=== PATIENT | female | born 1955 | race Caucasian/White ===

== ENCOUNTER 2024-07-17 21:35 | Inpatient (IN) | payer MEDICARE, MEDICAID, SELFPAY ==
[2024-07-17] VITALS (7 sets, daily range): BP systolic 121; BP diastolic 69; PULSE 104–134; TEMP 38.1; O2SAT 97; BMI 24.9
--- NOTE | 2024-07-17 22:04 | ECG_ITS ---
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 Measurements Intervals [place] Rate: 140 P: 65 KS: 158 QRS: 72 QRSD: 74 T: 40 QT: 282 QTc: 363 Interpretive Statements 1120 Sinus tachycardia 1974 with frequent ectopic premature complexes [address] depression [address] & Twave abnormality 9150 abnormal ECG Compared to ECG 11/13/2018 19:17:25 ST (T wave) deviation now present Sinus rhythm no longer present T-wave abnormality no longer present Electronically Signed On 07-18-2024 19:29:14 EDT by SOHA CALABRESE M.D.
--- NOTE | 2024-07-17 22:22 | ED.URI1 ---
HPI - URI/Sore Throat General Chief Complaint: Upper Respiratory Infection Stated Complaint: Upper Respiratory Infection A FIB Time Seen by Provider: 07/17/24 22:16 Source: patient Limitations: no limitations History of Present Illness HPI Narrative: ill for 5 days with cough, weakness, lightheadedness. Low grade fever. No chest pain or abdominal pain. No nausea. Cough is dry. States she has had A. fib in the past. she is on Eliquis Related Data Home Medications ?Medication ?Instructions ?Recorded ?Confirmed apixaban 5 mg tablet (Eliquis) 5 mg PO BID 07/17/24 07/17/24 aspirin 81 mg tablet,delayed 81 mg PO DAILY 07/17/24 07/17/24 release escitalopram oxalate 10 mg tablet 10 mg PO DAILY 07/17/24 07/17/24 losartan 25 mg tablet 25 mg PO DAILY 07/17/24 07/17/24 rosuvastatin 10 mg tablet (Crestor) 10 mg PO DAILY 07/17/24 07/17/24 Allergies Allergy/AdvReac Type Severity Reaction Status Date / Time No Known Drug Allergies Allergy Verified 07/17/24 21:46 Review of Systems ROS Status of ROS 10 or more systems reviewed and unremarkable except as noted in history and below Exam Constitutional Vital Signs, click to edit/add: Last Vital Signs Temp 100.6 F H 07/17/24 21:46 Pulse 116 H 07/18/24 01:10 Resp 24 H 07/18/24 01:10 BP 126/65 07/18/24 01:00 Pulse Ox 96 07/18/24 01:10 O2 Del Method Room Air 07/17/24 22:42 Common normals: no apparent distress, average body habitus, oriented x3, no limitations, healthy appearing, alert and well nourished [facility] Common normals: normocephalic and head/scalp atraumatic Eye Common normals: EOMs intact bilaterally and conjunctivae normal Respiratory Common normals: normal respiratory effort, no retractions and no use of accessory muscles Other: few rhonchii bilat and end expiratory wheezing Cardio Rate: tachycardic GI Common normals: Normal to inspection, nondistended, normoactive bowel sounds present, soft to palpation and non-tender Extremity Common normals: normal to inspection and full ROM Neuro Common normals: oriented x3, CN's II-XII intact bilaterally, moves all extremities and no focal motor deficits Psych Appearance: grossly normal Course Vital Signs Vital signs: Vital Signs Temperature 100.6 F H 07/17/24 21:46 Pulse Rate 110 H 07/17/24 21:46 Respiratory Rate 20 07/17/24 21:46 Blood Pressure 121/69 07/17/24 21:46 Pulse Oximetry 97 07/17/24 21:46 Oxygen Delivery Method Room Air 07/17/24 21:46 Temperature 100.6 F H 07/17/24 21:46 Pulse Rate 116 H 07/18/24 01:10 Respiratory Rate 24 H 07/18/24 01:10 Blood Pressure 126/65 07/18/24 01:00 Pulse Oximetry 96 07/18/24 01:10 Oxygen Delivery Method Room Air 07/17/24 22:42 MDM - URI/Sore Throat MDM Narrative Medical decision making narrative: patient history of cigarette use disorder. States she has not smoked cigarettes in 2 weeks. Ill for past 4-5 days with cough, weakness and light headiness as well as fever. Frequent dry cough. No chest. Septic workup initiated including IV antibiotics. cxray with infiltrate right chest. labs pending labs return with WBC 30,000. normal troponin. potassium 3.4. cxray per my review with evidence of density right chest. Tachycardia improved with hydration. Discussed with the hospitalist and patient accepted for admission Lab Data Labs: Lab Results 07/17/24 07/17/24 Range/Units 22:19 23:18 WBC 30.7 H* (4.0-11.0) 10^3/uL RBC 4.31 (4.20-5.40) 10^6/uL Hgb 11.4 L (12.0-16.0) g/dL Hct 35.4 L (36.0-48.0) % MCV 82.1 (81.0-99.0) fL MCH 26.5 L (26.7-34.0) pg MCHC 32.2 (29.9-35.2) g/dL RDW 14.5 (11.0-15.0) % Plt Count 284 (150-450) 10^3/uL MPV 11.5 (9.5-13.5) fL Seg Neuts % (Manual) 87.0 H (43.0-75.0) Band Neutrophils % 1.0 (0-5) % Lymphocytes % (Manual) 5.0 L (20.5-60.0) % Atypical Lymphs % (Man) 2.0 % Monocytes % (Manual) 5.0 (1.7-12.0) % Eosinophils % (Manual) 0.0 L (0.9-7.0) % Basophils % (Manual) 0.0 L (0.2-2.0) % Neutrophils # (Manual) 26.70 H (1.4-6.5) 10^3/uL Band Neutrophils # 0.3 (0.0-0.3) 10^3/uL Lymphocytes # (Manual) 1.53 (1.20-3.80) 10^3/uL Abs Atypical Lymphs Man 0.61 Monocytes # (Manual) 1.53 H (0.30-0.80) 10^3/uL Eosinophils # (Manual) 0.00 (0.00-0.70) 10^3/uL Basophils # (Manual) 0.00 (0.00-0.10) 10^3/uL Toxic Granulation 3+ Toxic Vacuolation 1+ Sodium 136 (136-145) mmol/L Potassium 3.4 L (3.5-5.1) mmol/L Chloride 100 (98-107) mmol/L Carbon Dioxide 22.9 (21.0-32.0) mmol/L Anion Gap 16.5 BUN 19.0 H (7.0-18.0) mg/dL Creatinine 1.04 H (0.55-1.02) mg/dL Est GFR ( Amer) >60 (>=60 mL/min/1.73m^2) Est GFR (Non-Af Amer) 53 L (>=60 mL/min/1.73m^2) BUN/Creatinine Ratio 18.3 Glucose 133 H (74-106) mg/dL Lactate 2.0 (0.4-2.0) mmol/L Calcium 9.7 (8.5-10.1) mg/dL Total Bilirubin 1.6 H (0.2-1.0) mg/dL AST 22 (15-37) U/L ALT 26 (14-59) U/L Alkaline Phosphatase 91 (46-116) U/L Troponin I High Sens 10.8 (4.0-51.3) pg/mL Total Protein 6.9 (6.4-8.2) g/dL Albumin 2.8 L (3.4-5.0) g/dL Globulin 4.1 g/dL Albumin/Globulin Ratio 0.7 Influenza Type A Ag Negative Influenza Type B Ag Negative SARS-CoV-2 Ag (CV2AG) Negative (NEGATIVE) Critical Care Time Critical Care Time Total Critical Care Time: 45 Discharge Plan Discharge Chief Complaint: Upper Respiratory Infection Clinical Impression: Pneumonia, Tachycardia Patient Disposition: Admitted As Inpatient
[2024-07-17 22:40] LABS: Influenza Virus A Antigen Negative; Influenza Virus B Antigen Negative; Internal Control Within Normal Limits; SARS-CoV-2 Ag NEGATIVE (NEGATIVE)
[2024-07-18] VITALS (21 sets, daily range): BP systolic 94–126; BP diastolic 52–70; PULSE 78–124; TEMP 36.4–37.1; O2SAT 91–98; BMI 26.7
[2024-07-18 00:15] LABS: Hematocrit 35.4 % (36.0-48.0); Hemoglobin 11.4 g/dL (12.0-16.0); Mean Corpuscular HGB Conc 32.2 g/dL (29.9-35.2); Mean Corpuscular Hemoglobin 26.5 pg (26.7-34.0); Mean Corpuscular Volume 82.1 fL (81.0-99.0); Mean Platelet Volume 11.5 fL (9.5-13.5); Platelet Count 284 10^3/uL (150-450); Red Blood Count 4.31 10^6/uL (4.20-5.40); Red Cell Distribution Width 14.5 % (11.0-15.0)
[2024-07-18 00:27] LABS: Alanine Aminotransferase 26 U/L (14-59); Albumin Globulin Ratio 0.7; Albumin Level 2.8 g/dL (3.4-5.0); Alkaline Phosphatase 91 U/L (46-116); Anion Gap 16.5; Aspartate Amino Transferase 22 U/L (15-37); BUN Creatinine Ratio 18.3; Bilirubin Total 1.6 mg/dL (0.2-1.0); Calcium 9.7 mg/dL (8.5-10.1); Carbon Dioxide 22.9 mmol/L (21.0-32.0); Chloride 100 mmol/L (98-107); Estimated GFR (African America >60 (>=60 mL/min/1.73m^2); Estimated GFR (Non-African Ame 53 (>=60 mL/min/1.73m^2); Globulin 4.1 g/dL; Glucose 133 mg/dL (74-106); Potassium 3.4 mmol/L (3.5-5.1); Sodium 136 mmol/L (136-145); Total Protein 6.9 g/dL (6.4-8.2)
[2024-07-18 00:28] LABS: White Blood Count 30.7 10^3/uL (4.0-11.0)
[2024-07-18 00:29] LABS: Atypical Lymphocytes Abs Man 0.61; Band Neutrophils Absolute 0.3 10^3/uL (0.0-0.3); Lymphocytes Absolute Manual 1.53 10^3/uL (1.20-3.80); Monocytes Absolute Manual 1.53 10^3/uL (0.30-0.80); Toxic Granulation 3+; Toxic Vacuolation 1+
[2024-07-18 00:30] LABS: Troponin I High Sensitivity 10.8 pg/mL (4.0-51.3)
[2024-07-18] MEDS: CEFTRIAXONE 1,000 MG in 0.9 % SODIUM CHLORIDE 50 ML 100 MG IV (00:39)
[2024-07-18] MEDS: 0.9 % SODIUM CHLORIDE 1,641 ML 547 ML IV (00:39)
[2024-07-18] MEDS: AZITHROMYCIN 500 MG in 0.9 % SODIUM CHLORIDE 250 ML 250 MG IV (01:13)
[2024-07-18 06:10] LABS: Hemoglobin 10.2 g/dL (12.0-16.0); Mean Corpuscular HGB Conc 32.9 g/dL (29.9-35.2); Mean Corpuscular Hemoglobin 26.7 pg (26.7-34.0); Mean Corpuscular Volume 81.2 fL (81.0-99.0); Mean Platelet Volume 10.6 fL (9.5-13.5); Platelet Count 249 10^3/uL (150-450); Red Blood Count 3.82 10^6/uL (4.20-5.40); Red Cell Distribution Width 14.3 % (11.0-15.0); White Blood Count 27.4 10^3/uL (4.0-11.0)
[2024-07-18 06:25] LABS: Anion Gap 11.6; BUN Creatinine Ratio 18.8; Calcium 8.7 mg/dL (8.5-10.1); Carbon Dioxide 21.9 mmol/L (21.0-32.0); Chloride 107 mmol/L (98-107); Estimated GFR (African America >60 (>=60 mL/min/1.73m^2); Estimated GFR (Non-African Ame >60 (>=60 mL/min/1.73m^2); Glucose 121 mg/dL (74-106); Potassium 3.5 mmol/L (3.5-5.1); Sodium 137 mmol/L (136-145)
--- NOTE | 2024-07-18 06:40 | P.HP_ITS ---
HPI H&P: HPI History of Present Illness Chief complaint: TACHYCARDIA, PNEUMONIA Narrative: Patient with increasing cough and shortness of breath over the last 5 or 6 days, worse on the day of admission, presented to the emergency room and found to have significant fever tachycardia respiratory distress secondary to right lower lobe pneumonia. I saw patient up in the medical surgical floor, still has some mild conversational dyspnea cough throughout the evaluation, not productive of sputum currently Opioid HPI Opioid Management Most Recent Pain and Opioid Data: Last Pain Scale 6 07/17/24 22:40 07/17/24 Last Pain Assessment 07/18/24 08:00 Last ORT Total Score 0 07/18/24 02:40 07/18/24 Last ORT Risk Category Low Risk 07/18/24 02:40 07/18/24 Review of Systems ROS Status of ROS 10 or more systems reviewed and unremark able except as noted in history and below [facility] Medical History (Updated 07/18/24 @ 09:03 by Owen Gamboa MD) Smoker ?F17.200 - Nicotine dependence, unspecified, uncomplicated (ICD-10) Hyperlipemia ?E78.5 - Hyperlipidemia, unspecified (ICD-10) Hypertension ?I10 - Essential (primary) hypertension (ICD-10) Afib ?I48.91 - Unspecified atrial fibrillation (ICD-10) Hx of stroke without residual deficits ?Z86.73 - Personal history of transient ischemic attack (TIA), and cerebral infarction without residual deficits (ICD-10) Surgical History (Updated 07/18/24 @ 02:44 by Bel Aldridge RN) Hx of cardiac cath ?Z98.890 - Other specified postprocedural states (ICD-10) Family History (Updated 07/18/24 @ 02:42 by Bel Aldridge RN) Mother Family history of COPD (chronic obstructive pulmonary disease) Family history of hypertension Family history of myocardial infarction Social History (Updated 07/18/24 @ 02:44 by Bel Aldridge RN) Within the past year, how often did you have a drink containing alcohol: never Score interpretation: A score less than 3 is consistent with normal alcohol consumption. Smoking status: Current every day smoker Non-prescribed substance use: denies use Highest level of school completed/degree received: high school graduate Are you now , , , , never or living with a partner: In a typical week, how many times do you talk on the telephone with family, friends, or neighbors: twice per week How often do you get together with friends or relatives: twice per week How often do you attend yazidi or christianity services: never Little interest or pleasure in doing things: not at all Feeling down, depressed, or hopeless: not at all Feel stressed/tense/nervous/anxious/difficulty sleeping: not at all Do you think of yourself as: straight/heterosexual Gender Identity: female Meds Home Medications and Allergies Home Medications ?Medication ?Instructions ?Recorded ?Confirmed ?Type apixaban 5 mg tablet (Eliquis) 5 mg PO BID 07/17/24 07/17/24 History aspirin 81 mg tablet,delayed 81 mg PO DAILY 07/17/24 07/17/24 History release escitalopram oxalate 10 mg tablet 10 mg PO DAILY 07/17/24 07/17/24 History losartan 25 mg tablet 25 mg PO DAILY 07/17/24 07/17/24 History rosuvastatin 10 mg tablet (Crestor) 10 mg PO DAILY 07/17/24 07/17/24 History Allergies Allergy/AdvReac Type Severity Reaction Status Date / Time No Known Drug Allergies Allergy Verified 07/17/24 21:46 Exam Constitutional Vital Signs, click to edit/add: Last Vital Signs Temp 98.2 F 07/18/24 05:59 Pulse 99 H 07/18/24 05:59 Resp 20 07/18/24 05:59 BP 107/66 07/18/24 05:59 Pulse Ox 91 L 07/18/24 05:59 O2 Del Method Room Air 07/18/24 05:59 Documenting provider has reviewed patient's vital signs: yes Common normals: apparent distress (Mild conversational dyspnea with persisting cough) Respiratory Common normals: no retractions; abnormal respiratory effort (Mild conversational dyspnea with persisting cough) Auscultation: rhonchi (Diffuse with poor air exchange) and wheezes (Throughout all lung gregorio) Cardio Common normals: regular rhythm; irregular rate Rate: tachycardic GI Common normals: Normal to inspection, nondistended, normoactive bowel sounds present, soft to palpation and non-tender Extremity Common normals: normal to inspection and no clubbing, cyanosis or edema Neuro Common normals: oriented x3, CN's II-XII intact bilaterally and moves all extremities Results Labs Labs: Short CBC 07/17/24 07/18/24 Range/Units 23:18 05:56 WBC 30.7 H* 27.4 H (4.0-11.0) 10^3/uL Hgb 11.4 L 10.2 L (12.0-16.0) g/dL Hct 35.4 L 31.0 L (36.0-48.0) % Plt Count 284 249 (150-450) 10^3/uL BMP 07/17/24 07/18/24 23:18 05:56 Sodium 136 137 Potassium 3.4 L 3.5 Chloride 100 107 Carbon Dioxide 22.9 21.9 BUN 19.0 H 13.0 Creatinine 1.04 H 0.69 Glucose 133 H 121 H Calcium 9.7 8.7 Liver Function 07/17/24 Range/Units 23:18 Total Bilirubin 1.6 H (0.2-1.0) mg/dL AST 22 (15-37) U/L ALT 26 (14-59) U/L Alkaline Phosphatase 91 (46-116) U/L Albumin 2.8 L (3.4-5.0) g/dL Assessment and Plan Assessment and Plan (1) Tachycardia: (2) Pneumonia: (3) Smoker: (4) Hyperlipemia: (5) Hypertension: (6) Afib: (7) Hx of stroke without residual deficits: (8) Fever with leukocytosis and leukocyte count greater than or equal to 20,000: (9) Severe sepsis: (10) Hypokalemia: (11) Iron deficiency anemia: (12) Dehydration: (13) Hyperbilirubinemia: (14) Elevated brain natriuretic peptide (BNP) level: Plan Admission findings: Patient with fever, tachycardia, respiratory distress, significant leukocytosis white blood cell count over 30,000, hypokalemia mild elevation in creatinine, elevation liver function test secondary to right lower lobe pneumonia resulting in sepsis. Elevated BNP so unable to give aggressive fluid resuscitation Sepsis secondary to right lower lobe pneumonia resulting in acute exacerbation of COPD - so far no significant hypoxia she is running low 90s,, add steroids, aerosol treatments. Obtain sputum culture, maintain current antibiotics white blood cell count is improved but still significantly elevated over 20,000 BNP elevated-check high-sensitivity troponin this morning, likely related to the severe sepsis as outlined above Hypokalemia-supplement Iron deficiency anemia-monitor Mild hyperglycemia-monitor Liver function test elevated likely secondary to the severe sepsis as outlined above Atrial fibrillation-maintain long-term anticoagulation, heart rate improving Moderate protein calorie malnutrition-diet supplement Depression-continue with home medications History of stroke-no residual symptoms-maintain current medications Hypertension-maintain current medications Hypercholesterolemia maintain current medications Admission status: Patient admitted with tachycardia, fever, respiratory distress, significant leukocytosis and white blood cell count over 30,000, resulting in sepsis due to right lower lobe pneumonia, medically necessary treatment will span 2 midnights. Inpatient status
[2024-07-18 07:19] LABS: Alanine Aminotransferase 16 U/L (14-59); Albumin Globulin Ratio 0.7; Albumin Level 2.3 g/dL (3.4-5.0); Alkaline Phosphatase 79 U/L (46-116); Aspartate Amino Transferase 22 U/L (15-37); Bilirubin Direct 0.4 mg/dL (0.0-0.2); Bilirubin Total 0.8 mg/dL (0.2-1.0); Globulin 3.5 g/dL; Total Protein 5.8 g/dL (6.4-8.2)
[2024-07-18 08:09] LABS: Glucometer 124 mg/dL (74-106)
--- NOTE | 2024-07-18 08:49 | CM.NOTE ---
Rounds made with Dr. Gamboa, pt continues to c/o dyspnea with minimal exertion. Pt tachypneic, not requiring oxygen at this time.
[2024-07-18 09:41] LABS: Troponin I High Sensitivity 10.4 pg/mL (4.0-51.3)
[2024-07-18] MEDS: BENZONATATE 100 MG CAPSULE 200 MG PO (09:45)
[2024-07-18] MEDS: METHYLPREDNISOLONE SOD SUCC PF 125 MG/2 ML VIAL 60 MG IVP ×3 (09:46→20:09)
[2024-07-18] MEDS: ENSURE HP 237 ML LIQUID PO ×2 (09:46→20:09)
[2024-07-18] MEDS: ASPIRIN 81 MG TABLET.DR PO (09:47)
[2024-07-18] MEDS: ACETAMINOPHEN 500 MG TABLET 1000 MG PO (09:48)
[2024-07-18] MEDS: LOSARTAN POTASSIUM 25 MG TABLET PO (09:49)
[2024-07-18] MEDS: APIXABAN 5 MG TABLET PO ×2 (09:49→20:09)
[2024-07-18] MEDS: ESCITALOPRAM 10 MG TABLET PO (09:51)
[2024-07-18] MEDS: ATORVASTATIN CALCIUM 40 MG TABLET PO (10:06)
[2024-07-18] MEDS: IPRATROPIUM/ALBUTEROL SULFATE 3 ML AMPUL.NEB IH ×3 (11:50→21:32)
--- NOTE | 2024-07-18 12:05 | CM.NOTE ---
Important Message From Medicare discussed with pt, pt verbalizes understanding and signs paper. Original given to pt and copy placed on pt's chart.
--- NOTE | 2024-07-18 12:24 | PC.NURSE ---
awaiting CT scan, called radiology and they have an ER pt on the table at the moment. order for colby blank
[2024-07-18 19:52] LABS: Bilirubin Urine NEGATIVE (NEGATIVE); Blood Urine TRACE-I (NEGATIVE); Clarity Urine CLEAR (CLEAR); Color Urine LT. YELLOW (YELLOW); Glucose Urine UA 250 mg/dL (NEGATIVE); Ketones Urine NEGATIVE (NEGATIVE); Leukocyte Esterase Urine TRACE (NEGATIVE); Nitrite Urine NEGATIVE (NEGATIVE); Protein Urine TRACE mg/dL (NEG/TRACE)
[2024-07-18 20:00] LABS: Bacteria Urine TRACE #/HPF (NONE SEEN); Cast Seen? NONE SEEN #/LPF (NONE SEEN); Crystals Seen? None Seen #/HPF (None Seen); Mucus Urine NONE SEEN (NONE SEEN); Squamous Epithelial Cell Urine FEW #/LPF (NONE/RARE); Urine Culture Indicated ALREADY ORDERED
[2024-07-19] VITALS: BP 100/59; PULSE 75; TEMP 36.7; O2SAT 92
[2024-07-19] MEDS: 0.9 % SODIUM CHLORIDE 250 ML 30 ML IV (00:32)
[2024-07-19] MEDS: CEFTRIAXONE 1,000 MG in 0.9 % SODIUM CHLORIDE 50 ML 100 MG IV (00:32)
[2024-07-19] MEDS: AZITHROMYCIN 500 MG in 0.9 % SODIUM CHLORIDE 250 ML 200 MG IV (01:08)
[2024-07-19] MEDS: METHYLPREDNISOLONE SOD SUCC PF 125 MG/2 ML VIAL 60 MG IVP (02:27)
[2024-07-19 04:00] VITALS: BP 114/71; PULSE 85; TEMP 36.7; O2SAT 94
[2024-07-19 04:56] VITALS: PULSE 86; O2SAT 96
[2024-07-19] MEDS: IPRATROPIUM/ALBUTEROL SULFATE 3 ML AMPUL.NEB IH (04:56)
[2024-07-19 06:10] LABS: Basophils Percent Auto 0.1 % (0.2-2.0); Eosinophils Percent Auto 0.1 % (0.9-7.0); Hematocrit 30.4 % (36.0-48.0); Immature Granulocytes Pct Auto 1.1 % (0.0-0.5); Lymphocytes Absolute Auto 1.2 10^3/uL (1.2-3.8); Lymphocytes Percent Auto 6.5 % (20.5-60.0); Mean Corpuscular HGB Conc 32.9 g/dL (29.9-35.2); Mean Corpuscular Volume 82.2 fL (81.0-99.0); Mean Platelet Volume 10.8 fL (9.5-13.5); Monocytes Absolute Auto 0.3 10^3/uL (0.3-0.8); Monocytes Percent Auto 1.5 % (1.7-12.0); Neutrophils Absolute Auto 16.5 10^3/uL (1.4-6.5); Neutrophils Percent Auto 90.7 % (43.0-75.0); Platelet Count 268 10^3/uL (150-450); Red Cell Distribution Width 14.6 % (11.0-15.0); White Blood Count 18.2 10^3/uL (4.0-11.0)
[2024-07-19 06:31] LABS: Alanine Aminotransferase 18 U/L (14-59); Albumin Globulin Ratio 0.6; Albumin Level 2.4 g/dL (3.4-5.0); Alkaline Phosphatase 77 U/L (46-116); Anion Gap 13.2; Aspartate Amino Transferase 15 U/L (15-37); BUN Creatinine Ratio 24.6; Bilirubin Total 0.4 mg/dL (0.2-1.0); Calcium 9.4 mg/dL (8.5-10.1); Carbon Dioxide 22.2 mmol/L (21.0-32.0); Chloride 108 mmol/L (98-107); Estimated GFR (African America >60 (>=60 mL/min/1.73m^2); Estimated GFR (Non-African Ame >60 (>=60 mL/min/1.73m^2); Globulin 3.8 g/dL; Glucose 172 mg/dL (74-106); Potassium 3.4 mmol/L (3.5-5.1); Sodium 140 mmol/L (136-145); Total Protein 6.2 g/dL (6.4-8.2)
--- NOTE | 2024-07-19 06:44 | P.DS_ITS ---
DS: Providers Provider Date of admission: 07/18/24 02:12 Primary care physician: Lata Hernandez DO Consults: 07/18/24 06:44 Physical Therapy Eval and Treat Routine Reason for consultation: Eval and Treat Has provider been notified: No DS: Diagnosis Discharge Diagnosis (1) Tachycardia: (2) Pneumonia: (3) Smoker: (4) Hyperlipemia: (5) Hypertension: (6) Afib: (7) Hx of stroke without residual deficits: (8) Fever with leukocytosis and leukocyte count greater than or equal to 20,000: (9) Severe sepsis: (10) Hypokalemia: (11) Iron deficiency anemia: (12) Dehydration: (13) Hyperbilirubinemia: (14) Elevated brain natriuretic peptide (BNP) level: Plan Admission findings: Patient with fever, tachycardia, respiratory distress, significant leukocytosis white blood cell count over 30,000, hypokalemia mild elevation in creatinine, elevation liver function test secondary to right lower lobe pneumonia resulting in sepsis. Elevated BNP so unable to give aggressive fluid resuscitation Sepsis secondary to right lower lobe pneumonia resulting in acute exacerbation of COPD -right blood cell count improving, BNP elevated-check high-sensitivity troponin this morning, likely related to the severe sepsis as outlined above-improving Wdozpmeczen-nslngdljay-wptxtk Iron deficiency anemia-monitor Mild hyperglycemia-monitor Liver function test elevated likely secondary to the severe sepsis as outlined above improving Atrial fibrillation-maintain long-term anticoagulation, heart rate improving Moderate protein calorie malnutrition-diet supplement Depression-continue with home medications History of stroke-no residual symptoms-maintain current medications Hypertension-maintain current medications Hypercholesterolemia maintain current medications Admission status: Patient admitted with tachycardia, fever, respiratory distress, significant leukocytosis and white blood cell count over 30,000, resulting in sepsis due to right lower lobe pneumonia, medically necessary treatment will span 2 midnights. Inpatient status ? DS: Summary Hospital Course Hospital Course: Patient was seen and evaluated in the emergency room with Admission findings: Patient with fever, tachycardia, respiratory distress, significant leukocytosis white blood cell count over 30,000, hypokalemia mild elevation in creatinine, elevation liver function test secondary to right lower lobe pneumonia resulting in sepsis. Elevated BNP so unable to give aggressive fluid resuscitation. IV antibiotics and frequent aerosol treatments and steroids, still significantly wheezing later on in the afternoon yesterday, so To add today as medically necessary treatment needed to persist, white blood cell count is improved today although not all the way back to baseline, no hypoxia is developed her lungs have better air exchange today, still significant rhonchi and wheeze with the lack of hypoxia will discharge patient to home in improving condition. Medications see list. If she wishes to she can see me in the office within the next week, her current PCP is in [place] Time Spent with Patient Time attestation: Total time spent providing and/or coordinating discharge services: Exam Constitutional Vital Signs, click to edit/add: Last Vital Signs Temp 98.0 F 07/19/24 04:00 Pulse 86 07/19/24 04:56 Resp 18 07/19/24 04:56 BP 114/71 07/19/24 04:00 Pulse Ox 96 07/19/24 04:56 O2 Del Method Room Air 07/19/24 04:56 Documenting provider has reviewed patient's vital signs: yes Common normals: no apparent distress (Conversational dyspnea resolved) Respiratory Common normals: normal respiratory effort (Conversational dyspnea is resolved) and no retractions Auscultation: rhonchi (Rhonchi persisting but better air exchange) lower bilaterally and wheezes (Improved from previous day) Cardio Common normals: regular rhythm; irregular rate Rate: tachycardic GI Common normals: Normal to inspection, nondistended, normoactive bowel sounds pr esent, soft to palpation and non-tender Extremity Common normals: normal to inspection and no clubbing, cyanosis or edema Neuro Common normals: oriented x3, CN's II-XII intact bilaterally and moves all extremities DS: Data Data Completed and Pending Labs on day of discharge: Labs from last 24 hours 07/19/24 07/18/24 07/18/24 05:50 19:40 08:05 WBC 18.2 H RBC 3.70 L Hgb 10.0 L Hct 30.4 L MCV 82.2 MCH 27.0 MCHC 32.9 RDW 14.6 Plt Count 268 MPV 10.8 Neut % (Auto) 90.7 H Lymph % (Auto) 6.5 L [place] % (Auto) 1.5 L Eos % (Auto) 0.1 L Baso % (Auto) 0.1 L Neut # (Auto) 16.5 H Lymph # (Auto) 1.2 [place] # (Auto) 0.3 Eos # (Auto) 0.0 Baso # (Auto) 0.0 Abs Immat Gran (auto) 0.20 H Imm/Tot Granulo (auto) 1.1 H Sodium 140 Potassium 3.4 L Chloride 108 H Carbon Dioxide 22.2 Anion Gap 13.2 BUN 15.0 Creatinine 0.61 Est GFR ( Amer) >60 Est GFR (Non-Af Amer) >60 BUN/Creatinine Ratio 24.6 Glucose 172 H Lactate Calcium 9.4 Total Bilirubin 0.4 Direct Bilirubin AST 15 ALT 18 Alkaline Phosphatase 77 Troponin I High Sens NT-Pro-B Natriuret Pep 702.0 Total Protein 6.2 L Albumin 2.4 L Globulin 3.8 Albumin/Globulin Ratio 0.6 Urine Color Lt. yellow Urine Clarity Clear Urine pH 6.0 Ur Specific [place] 1.010 Urine Protein Trace Urine Glucose (UA) 250 A Urine Ketones Negative Urine Occult Blood Trace-i Urine Nitrite Negative Urine Bilirubin Negative Urine Urobilinogen 4.0 A Ur Leukocyte Esterase Trace A Urine RBC 2-5 A Urine WBC 2-5 A Ur Squamous Epith Cells Few A Urine Crystals None seen Urine Bacteria Trace A Urine Casts None seen Urine Mucus None seen Ur Culture Indicated? Already ordered POC Glucose 124 H 07/18/24 07/18/24 07/17/24 07:11 05:56 23:18 WBC RBC Hgb Hct MCV MCH MCHC RDW Plt Count MPV Neut % (Auto) Lymph % (Auto) [place] % (Auto) Eos % (Auto) Baso % (Auto) Neut # (Auto) Lymph # (Auto) [place] # (Auto) Eos # (Auto) Baso # (Auto) Abs Immat Gran (auto) Imm/Tot Granulo (auto) Sodium Potassium Chloride Carbon Dioxide Anion Gap BUN Creatinine Est GFR ( Amer) Est GFR (Non-Af Amer) BUN/Creatinine Ratio Glucose Lactate 1.0 Calcium Total Bilirubin 0.8 Direct Bilirubin 0.4 H AST 22 ALT 16 Alkaline Phosphatase 79 Troponin I High Sens 10.4 NT-Pro-B Natriuret Pep 973.0 H 1216.0 H* Total Protein 5.8 L Albumin 2.3 L Globulin 3.5 Albumin/Globulin Ratio 0.7 Urine Color Urine Clarity Urine pH Ur Specific [place] Urine Protein Urine Glucose (UA) Urine Ketones Urine Occult Blood Urine Nitrite Urine Bilirubin Urine Urobilinogen Ur Leukocyte Esterase Urine RBC Urine WBC Ur Squamous Epith Cells Urine Crystals Urine Bacteria Urine Casts Urine Mucus Ur Culture Indicated? POC Glucose Preliminary micro results at discharge 07/18/24 19:40 Urine Culture - Preliminary Urine,Clean Catch Pending - Specimen sent to [facility] Discharge Plan Discharge Disposition: Home, Self-Care Discharge Medications: New prednisone 10 mg tablet 40 mg PO DAILY Qty: 32 0RF Rx Instructions: 4/day for 3 days, 3/day for 3 days, 2/day for 3 days, 1/day for 3 days, 1/2 /day for 4 days cefdinir 300 mg capsule 600 mg PO DAILY Qty: 20 0RF albuterol sulfate [Ventolin HFA] 90 mcg/actuation HFA aerosol inhaler 2 inh inhalation Q6H PRN (Reason: shortness of breath or wheezing) Qty: 8.5 11RF Continued Eliquis 5 mg tablet 5 mg PO BID aspirin 81 mg tablet,delayed release (DR/EC) 81 mg PO DAILY escitalopram oxalate 10 mg tablet 10 mg PO DAILY losartan 25 mg tablet 25 mg PO DAILY rosuvastatin [Crestor] 10 mg tablet 10 mg PO DAILY Print Language: Guinean Forms: Portal Instructions Follow Up Appointments: July 26 @ 10am with Dr. Hernandez [phone]
[2024-07-19 07:29] VITALS: BP 117/76; PULSE 89; TEMP 36.8; O2SAT 92
--- NOTE | 2024-07-19 08:04 | CM.NOTE ---
Rounds made with Dr. Gamboa. Dr. Gamboa reviews plan of care and lab work. Potential discharge to home today. Allegra verbalizes understanding.
[2024-07-19] MEDS: APIXABAN 5 MG TABLET PO (08:25)
[2024-07-19] MEDS: LOSARTAN POTASSIUM 25 MG TABLET PO (08:25)
[2024-07-19] MEDS: ESCITALOPRAM 10 MG TABLET PO (08:25)
[2024-07-19] MEDS: ASPIRIN 81 MG TABLET.DR PO (08:25)
[2024-07-19] MEDS: ATORVASTATIN CALCIUM 40 MG TABLET PO (08:25)
[2024-07-19 08:27] VITALS: PULSE 89
--- NOTE | 2024-07-24 13:24 | CM.DCFOLLOWU ---
1st attempt 07/24/24, no answer
== END 2024-07-19 10:56 | disposition home or self-care (01) | DRG 871 ==
LOC: ER 07-18 01:27 → MS 07-18 02:33
PROVIDERS: Family Medicine; Registered Nurse; Admitting Provider Family Medicine; Emergency Provider Internal Medicine; PCP Student in an Organized Health Care Education/Training Program; Visit Provider Family Medicine
DX: A41.9 Sepsis, unspecified organism (principal); J18.9 Pneumonia, unspecified organism; R17 Unspecified jaundice; J44.1 Chronic obstructive pulmonary disease with (acute) exacerbation; J44.0 Chronic obstructive pulmonary disease with (acute) lower respiratory infection; E44.0 Moderate protein-calorie malnutrition; I10 Essential (primary) hypertension; I48.91 Unspecified atrial fibrillation; F17.200 Nicotine dependence, unspecified, uncomplicated; R65.20 Severe sepsis without septic shock; E87.6 Hypokalemia; F32.A Depression, unspecified; D50.9 Iron deficiency anemia, unspecified; E86.0 Dehydration; R73.9 Hyperglycemia, unspecified; Z68.26 Body mass index [BMI] 26.0-26.9, adult; E78.00 Pure hypercholesterolemia, unspecified; Z79.82 Long term (current) use of aspirin; Z79.01 Long term (current) use of anticoagulants; Z86.73 Personal history of transient ischemic attack (TIA), and cerebral infarction without residual deficits; Z79.899 Other long term (current) drug therapy
CPT/HCPCS: 36415; 71046; 80048; 80053; 80076; 81001; 83605; 83880; 84484; 85007; 85025; 85027; 87040; 87070; 87086; 87205; 87804; 87811; 93005; 94640; 94667; 94668; 94761; 96365; 96367; 97161; 99285; 99406; J0456; J0696; J2919